=== PATIENT | female | born 1995 | race Caucasian/White ===

== ENCOUNTER 2018-08-18 08:31 | Emergency (ER) | payer OTHER ==
[2018-08-18 08:54] VITALS: BP 140/88
--- NOTE | 2018-08-18 09:43 | ER Report ---
History and Physical Time Seen By MD: 09:30 Hx. of Stated Complaint: needle stick HPI/ROS CHIEF COMPLAINT: Needlestick HISTORY OF PRESENT ILLNESS: Patient is a student who just prior to arrival was administering lidocaine with gloved hand (r hand dom) when she noted that she had blood under her glove on left hand/ left thumb. She is not sure if she stuck herself first or subsequent to injections. Tetanus is utd. She washed at scene. Source pt identified. Pt has had blood drawn. REVIEW OF SYSTEMS: Respiratory: no difficulty breathing Cardiovascular: no chest pain Gastrointestinal: no vomiting Musculoskeletal: no other injuries Allergies: Coded Allergies: No Known Allergies (Verified Allergy, Unknown, 08/18/18) Reviewed Nurses Notes: Yes Constitutional Vital Sign - Last 24 Hours 08/18/18 08:54 Temp 98.7 Pulse 82 Resp 12 B/P (MAP) 140/88 Pulse Ox 96 O2 Delivery Room Air Physical Exam General Appearance: The patient is alert, has no immediate need for airway protection and no current signs of toxicity. [ ] Eyes: Pupils equal and round no injection. Respiratory: no respiratory distress Cardiac: regular rate and rhythm Skin: small punctate wound no active bleeding, left lat thumb DIFFERENTIAL DIAGNOSIS: After history and physical exam differential diagnosis was considered for neelestick complicated by exposure to infectious disease Medical Decision Making Data Points Laboratory Hematology Test 08/18/18 09:23 HIV (1&2) Antibody Negative (NEGATIVE) Chemistry Test 08/18/18 09:23 HIV (1&2) Antibody Negative (NEGATIVE) ED Course/Re-evaluation ED Course needlestick; poss bf exposure; protocol followed, pt counceled; d/c with f/u arranged and SRP's. Decision to Disposition Date: Aug 18, 2018 Decision to Disposition Time: 09:56 Depart Departure Latest Vital Signs Vital Signs Date Time Temp Pulse Resp B/P (MAP) Pulse Ox O2 Delivery O2 Flow Rate FiO2 08/18/18 08:54 98.7 82 12 140/88 96 Room Air Impression: Primary Impression: Exposure to body fluid due to accidental needlestick injury Condition: Improved Disposition: HOME OR SELF-CARE Referrals: [facility] 5 Days Patient Instructions: Body Substance Exposure (ED) Additional Instructions: Follow up as instructed. Please return for signs of infection (redness, swelling, increased pain, pus), or any concerns. ZAINA TIDWELL MD Aug 18, 2018 09:43
== END 2018-08-18 10:22 | disposition home or self-care (01) ==
LOC: ER 09:34
DX: Z77.21 Contact with and (suspected) exposure to potentially hazardous body fluids (principal)
CPT/HCPCS: 36415; 86703; 86706; 86803; 87340; 99282